=== PATIENT | male | born 1950 | race Caucasian/White ===

== ENCOUNTER 2021-07-23 16:42 | Inpatient (IN) | payer MEDICARE, OTHER ==
[~2021-07-23 16:42] MED LIST: Iopamidol 370 76% 100 ML VIAL ONE
[2021-07-23 17:27] LABS: #Lymphocytes 0.6 thou/uL (1.20-3.40); #Monocytes 0.3 thou/uL (0.11-0.59); #Neutrophils 2.4 thou/uL (1.40-6.50); %Basophils 0.4 % (0.0-1.0); %Eosinophils 0.2 % (0.0-10.0); %Lymphocytes 18.1 % (21.0-51.0); %Monocytes 8.3 % (0.0-10.0); Hemoglobin 15.3 g/dL (14.0-18.0); Mean Corpuscular HGB CONC 32.5 g/dL (32.0-36.0); Mean Corpuscular Hemoglobin 32.4 pg (27.0-31.0); Mean Corpuscular Volume 99.9 fL (78.0-98.0); Mean Platelet Volume 7.8 fL (7.4-10.4); Platelet Count 88 thou/uL (130-400); RBC Distribution Width 13.1 % (11.5-14.5); Red Blood Cell (RBC) Count 4.72 mill/uL (4.70-6.10); White Blood Cell (WBC) Count 3.3 thou/uL (4.8-10.8)
[2021-07-23] MEDS ORDERED: Albuterol 200 PUFF (6.7GM INHALER) ONE (17:31)
[2021-07-23 17:42] LABS: Platelet Morphology Comment Appears Decreased; RBC Morphology Normal
[2021-07-23 17:44] LABS: Anion Gap 12 mmol/L (10-20); BUN (Urea Nitrogen) 16 mg/dL (8.4-25.7); Calc. Creatinine Clearance 0 mL/min (70-130); Calcium 8.2 mg/dL (7.8-10.44); Carbon Dioxide 26 mmol/L (23-31); Chloride 102 mmol/L (98-107); Glucose 100 mg/dL (83-110); Potassium 4.7 mmol/L (3.5-5.1); Sodium 135 mmol/L (136-145)
[2021-07-23] MEDS ORDERED: cefTRIAXone\\ROCEPHIN 1 GM VIAL ONE (18:04)
[2021-07-23] MEDS ORDERED: Dexamethasone 10 MG/ML VIAL ONE (18:04)
[2021-07-23 18:15] LABS: CKMB 2.4 ng/mL (0-6.6)
[2021-07-23] MEDS ORDERED: Azithromycin 250 MG TAB ONE (18:16)
[2021-07-23] MEDS ORDERED: Acetaminophen 650 MG Suppository PR PRN (19:57)
[2021-07-23] MEDS ORDERED: Ondansetron PF 4 MG/2 ML Vial IVP PRN (19:57)
[2021-07-23] MEDS ORDERED: Ondansetron ODT 4 MG TAB PO PRN (19:57)
[2021-07-23 20:50] LABS: Troponin I 0.067 ng/mL (< 0.028)
[2021-07-23] MEDS ORDERED: Furosemide 40 MG/4 ML VIAL SLOW IVP SCH (21:00)
[2021-07-23] MEDS ORDERED: Enoxaparin Sodium 40 MG/0.4 ML SYRINGE SC SCH (21:00)
[2021-07-23 21:11] VITALS: BMI 41.4
[2021-07-23] MEDS: Albuterol 200 PUFF (6.7GM INHALER) INH SCH (22:21)
[2021-07-23] MEDS ORDERED: traZODone HCl 50 MG TAB PO PRN (22:42)
[2021-07-23] MEDS: Acetaminophen 325 MG TAB PO PRN (23:05)
[2021-07-23 23:44] LABS: Troponin I 0.062 ng/mL (< 0.028)
[2021-07-24] MEDS: Albuterol 200 PUFF (6.7GM INHALER) INH SCH ×6 (02:50→22:36)
[2021-07-24 06:51] LABS: Anion Gap 12 mmol/L (10-20); BUN (Urea Nitrogen) 22 mg/dL (8.4-25.7); Calc. Creatinine Clearance 126 mL/min (70-130); Calcium 8.1 mg/dL (7.8-10.44); Carbon Dioxide 23 mmol/L (23-31); Chloride 106 mmol/L (98-107); Glucose 145 mg/dL (83-110); Potassium 4.7 mmol/L (3.5-5.1); Sodium 136 mmol/L (136-145)
[2021-07-24 06:54] LABS: Mean Corpuscular HGB CONC 32.8 g/dL (32.0-36.0); Mean Corpuscular Hemoglobin 33.1 pg (27.0-31.0); Mean Platelet Volume 8.2 fL (7.4-10.4); Platelet Count 67 thou/uL (130-400); RBC Distribution Width 12.9 % (11.5-14.5); Red Blood Cell (RBC) Count 4.82 mill/uL (4.70-6.10); White Blood Cell (WBC) Count 1.4 thou/uL (4.8-10.8)
[2021-07-24 06:55] LABS: Anisocytosis SLIGHT = 6-15 cells (100X) (0-5/hpf); Band 4 % (5-11); Lymphocytes 26 % (21-51); MDiff Complete? YES; Macrocytosis SLIGHT = 6-15 cells (100X) (0-5/hpf); Monocytes 8 % (0-10); Neutrophil 62 % (42-75); Platelet Morphology Comment Appears Decreased
[2021-07-24] MEDS: Ascorbic Acid 500 mg Chewable Tablet PO SCH (07:57)
[2021-07-24] MEDS: Pantoprazole 40 MG VIAL IVP SCH (07:58)
[2021-07-24] MEDS: Zinc Sulfate 220 MG CAP PO SCH (07:58)
[2021-07-24] MEDS: Cholecalciferol (Vitamin D3) 400 UNITS TAB PO SCH (07:58)
[2021-07-24] MEDS: Furosemide 40 MG/4 ML VIAL SLOW IVP SCH (07:58)
[2021-07-24] MEDS ORDERED: ALPRAZolam 0.5 MG TAB PO SCH (08:21)
[2021-07-24] MEDS ORDERED: Dexamethasone 10 MG/ML VIAL SLOW IVP SCH (09:00)
[2021-07-24 15:07] LABS: ALT (SGPT) 44 U/L (8-55); AST (SGOT) 108 U/L (5-34); Albumin 2.8 g/dL (3.4-4.8); Alkaline Phosphatase 93 U/L (40-110); Bilirubin, Direct 0.5 mg/dL (0.1-0.3); Bilirubin, Total 0.8 mg/dL (0.2-1.2); Protein, Total 6.5 g/dL (5.8-8.1)
[2021-07-24] MEDS: Acetaminophen 325 MG TAB PO PRN (20:47)
[2021-07-24] MEDS: Morphine 4 MG/ML VIAL SLOW IVP PRN (22:32)
[2021-07-24] MEDS: Benzonatate 100 MG CAP PO PRN (22:34)
[2021-07-24] MEDS: guaiFENesin ER 600 MG TAB PO SCH (22:34)
[2021-07-25] MEDS: Morphine 4 MG/ML VIAL SLOW IVP PRN ×2 (02:46→21:50)
[2021-07-25] MEDS: Benzonatate 100 MG CAP PO PRN ×2 (02:47→21:51)
[2021-07-25] MEDS: Albuterol 200 PUFF (6.7GM INHALER) INH SCH ×6 (02:49→21:54)
[2021-07-25 06:06] LABS: #Lymphocytes 0.4 thou/uL (1.20-3.40); #Monocytes 0.4 thou/uL (0.11-0.59); #Neutrophils 6.9 thou/uL (1.40-6.50); %Eosinophils 0.1 % (0.0-10.0); %Lymphocytes 4.7 % (21.0-51.0); %Monocytes 4.8 % (0.0-10.0); %Neutrophils 90.4 % (42.0-75.0); Mean Corpuscular HGB CONC 31.9 g/dL (32.0-36.0); Mean Platelet Volume 8.5 fL (7.4-10.4); Platelet Count 91 thou/uL (130-400); Red Blood Cell (RBC) Count 4.99 mill/uL (4.70-6.10); White Blood Cell (WBC) Count 7.6 thou/uL (4.8-10.8)
[2021-07-25 06:32] LABS: ALT (SGPT) 57 U/L (8-55); AST (SGOT) 127 U/L (5-34); Albumin 2.6 g/dL (3.4-4.8); Alkaline Phosphatase 86 U/L (40-110); Anion Gap 13 mmol/L (10-20); BUN (Urea Nitrogen) 27 mg/dL (8.4-25.7); Bilirubin, Total 0.8 mg/dL (0.2-1.2); CRP (Inflammatory) 0.82 mg/dL (= or < 0.5); Calc. Creatinine Clearance 131 mL/min (70-130); Calcium 8.4 mg/dL (7.8-10.44); Carbon Dioxide 23 mmol/L (23-31); Chloride 107 mmol/L (98-107); Globulin 3.4 g/dL (2.4-3.5); Glucose 157 mg/dL (83-110); Potassium 4.5 mmol/L (3.5-5.1); Sodium 138 mmol/L (136-145)
[2021-07-25] MEDS ORDERED: REMDESIVIR 200 MG in Sodium Chloride 0.9% 250 ML 210 ML IV SCH (09:00)
[2021-07-25] MEDS: Ascorbic Acid 500 mg Chewable Tablet PO SCH (09:58)
[2021-07-25] MEDS: Multivitamin W/ Minerals 1 TAB PO SCH (09:59)
[2021-07-25] MEDS: Dexamethasone 4 mg/ml Vial SLOW IVP SCH (09:59)
[2021-07-25] MEDS: Furosemide 40 MG/4 ML VIAL SLOW IVP SCH (09:59)
[2021-07-25] MEDS: Folic Acid 1 MG TAB PO SCH (09:59)
[2021-07-25] MEDS: Cholecalciferol (Vitamin D3) 400 UNITS TAB PO SCH (09:59)
[2021-07-25] MEDS: guaiFENesin ER 600 MG TAB PO SCH ×2 (09:59→21:51)
[2021-07-25] MEDS: Thiamine 100 MG TAB PO SCH (10:00)
[2021-07-25] MEDS: Zinc Sulfate 220 MG CAP PO SCH (10:00)
[2021-07-25] MEDS: Pantoprazole 40 MG VIAL IVP SCH (10:00)
[2021-07-25 15:08] LABS: HBSAg Index 0.27 S/CO (0-0.99); HIV (1/2) Antibody/Antigen Non-Reactive (NonReactive); HIV 1/2 INDEX 0.14 S/CO (<1.00); Hep B Surf Ag Non-Reactive S/CO (NonReactive); Thyroid Stimulating Hormone 0.2587 uIU/mL (0.35-4.94)
[2021-07-25 15:12] LABS: HBSAB Concentration 41.47 mIU/mL; Hep B Surf AB Reactive (NonReactive); Hep C IgG Ab Reflex HepC Qnt (NonReactive); Hep C Index 13.89 S/CO (0-0.79)
[2021-07-25 15:44] LABS: Hep B Core Total Ab Reactive (NonReactive); Hep B Core Total Index 9.83 S/CO (0-0.79)
[2021-07-25] MEDS ORDERED: Melatonin 3 MG TAB PO SCH (21:29)
[2021-07-26] MEDS: Albuterol 200 PUFF (6.7GM INHALER) INH SCH ×6 (03:49→23:28)
[2021-07-26 05:25] LABS: #Lymphocytes 0.4 thou/uL (1.20-3.40); #Monocytes 0.5 thou/uL (0.11-0.59); #Neutrophils 8.4 thou/uL (1.40-6.50); %Eosinophils 0.1 % (0.0-10.0); %Lymphocytes 4.5 % (21.0-51.0); %Monocytes 5.2 % (0.0-10.0); %Neutrophils 90.3 % (42.0-75.0); Hemoglobin 15.8 g/dL (14.0-18.0); Mean Corpuscular Hemoglobin 31.3 pg (27.0-31.0); Mean Platelet Volume 8.8 fL (7.4-10.4); Platelet Count 97 thou/uL (130-400); RBC Distribution Width 13.1 % (11.5-14.5); Red Blood Cell (RBC) Count 5.06 mill/uL (4.70-6.10); White Blood Cell (WBC) Count 9.3 thou/uL (4.8-10.8)
[2021-07-26] MEDS: Morphine 4 MG/ML VIAL SLOW IVP PRN ×2 (05:26→20:01)
[2021-07-26 05:29] LABS: INR-International Normal Ratio 1.1; Prothrombin Time 14.7 sec (12.0-14.7)
[2021-07-26 05:47] LABS: ALT (SGPT) 68 U/L (8-55); AST (SGOT) 135 U/L (5-34); Albumin 2.5 g/dL (3.4-4.8); Alkaline Phosphatase 94 U/L (40-110); Anion Gap 13 mmol/L (10-20); BUN (Urea Nitrogen) 30 mg/dL (8.4-25.7); Bilirubin, Total 0.9 mg/dL (0.2-1.2); Calc. Creatinine Clearance 145 mL/min (70-130); Calcium 8.4 mg/dL (7.8-10.44); Carbon Dioxide 24 mmol/L (23-31); Cardiac Risk 3.8 (Less than 4.5); Chloride 107 mmol/L (98-107); Cholesterol 109 mg/dl (< 200 Desired); Globulin 3.7 g/dL (2.4-3.5); Glucose 147 mg/dL (83-110); HDL Cholesterol 29 mg/dL (>60 Neg Risk); LDL Cholesterol, Calculated 67 mg/dL; Potassium 4.8 mmol/L (3.5-5.1); Protein, Total 6.2 g/dL (5.8-8.1); Sodium 139 mmol/L (136-145); Triglycerides 63 mg/dL (Less than 150)
[2021-07-26] MEDS ORDERED: REMDESIVIR 100 MG in Sodium Chloride 0.9% 250 ML 230 ML IV SCH (09:00)
[2021-07-26] MEDS: Pantoprazole 40 MG VIAL IVP SCH (09:36)
[2021-07-26] MEDS: guaiFENesin ER 600 MG TAB PO SCH ×2 (09:38→20:03)
[2021-07-26] MEDS: Folic Acid 1 MG TAB PO SCH (09:39)
[2021-07-26] MEDS: Thiamine 100 MG TAB PO SCH (09:39)
[2021-07-26] MEDS: Multivitamin W/ Minerals 1 TAB PO SCH (09:39)
[2021-07-26] MEDS: Ascorbic Acid 500 mg Chewable Tablet PO SCH (09:39)
[2021-07-26] MEDS: Zinc Sulfate 220 MG CAP PO SCH (09:39)
[2021-07-26] MEDS: Dexamethasone 4 mg/ml Vial SLOW IVP SCH (09:40)
[2021-07-26] MEDS: Cholecalciferol (Vitamin D3) 400 UNITS TAB PO SCH (09:40)
[2021-07-26] MEDS: Furosemide 40 MG/4 ML VIAL SLOW IVP SCH (09:53)
[2021-07-26] MEDS: Acetaminophen 325 MG TAB PO PRN (16:59)
[2021-07-26] MEDS: Benzonatate 100 MG CAP PO PRN (16:59)
[2021-07-27] MEDS: Albuterol 200 PUFF (6.7GM INHALER) INH SCH ×6 (03:54→21:34)
[2021-07-27] MEDS: Ascorbic Acid 500 mg Chewable Tablet PO SCH (09:37)
[2021-07-27] MEDS: Dexamethasone 4 mg/ml Vial SLOW IVP SCH (09:38)
[2021-07-27] MEDS: Cholecalciferol (Vitamin D3) 400 UNITS TAB PO SCH (09:38)
[2021-07-27] MEDS: Folic Acid 1 MG TAB PO SCH (09:38)
[2021-07-27] MEDS: Furosemide 40 MG/4 ML VIAL SLOW IVP SCH (09:38)
[2021-07-27] MEDS: Pantoprazole 40 MG VIAL IVP SCH (09:39)
[2021-07-27] MEDS: Multivitamin W/ Minerals 1 TAB PO SCH (09:39)
[2021-07-27] MEDS: guaiFENesin ER 600 MG TAB PO SCH ×2 (09:39→19:49)
[2021-07-27] MEDS: Zinc Sulfate 220 MG CAP PO SCH (09:40)
[2021-07-27] MEDS: Thiamine 100 MG TAB PO SCH (09:40)
[2021-07-27] MEDS: Benzonatate 100 MG CAP PO PRN (19:49)
[2021-07-27] MEDS: traMADol HCl 50 MG TAB PO PRN (19:49)
[2021-07-27] MEDS: Morphine 4 MG/ML VIAL SLOW IVP PRN (21:26)
[2021-07-28 02:03] LABS: Bacteria/HPF None Seen HPF (None Seen); Bilirubin Negative (Negative); Blood, Urine Negative (Negative); Clarity Clear (Clear); Glucose, Urine (Dipstick) Normal (Negative); Ketone, Urine Negative (Negative); Leukocyte Negative Leu/uL (Negative); Nitrite Negative (Negative); Protein, Urine (Dipstick) 20 mg/dL (Neg-Trace); RBC/HPF 0-3 HPF (0-3); Specific Gravity, Urine 1.032 (1.002-1.036); Squamous Epithelial None Seen HPF (0-3); WBC/HPF 0-3 HPF (0-3); pH, Urine 6.5 (5.0-9.0)
[2021-07-28 02:08] LABS: Urine Culture Reflex No No
[2021-07-28 02:09] LABS: Actual Bicarbonate (HCO3a) 31.4 mEq/L (22-28); Base Excess (BEa) 5.6 mEq/L (-2.0 to +3.0); CO2 Tension 49.6 mmHg (35.0-45.0); Calcium, Ionized (arterial) 1.18 mmol/L (1.12-1.30); Carboxyhemoglobin (COHb) 0.5 gm% (0.0-3.0); O2 Tension (PaO2), arterial 70.8 mmHg (> 70.0); Potassium - ABG Lab 4.52 mmol/L (3.70-5.30); pH, Arterial 7.42 (7.35-7.45)
[2021-07-28 02:15] LABS: Puncture Site RRA
[2021-07-28 02:20] LABS: #Lymphocytes 0.7 thou/uL (1.20-3.40); #Monocytes 0.8 thou/uL (0.11-0.59); #Neutrophils 10.1 thou/uL (1.40-6.50); %Basophils 0.1 % (0.0-1.0); %Eosinophils 0.1 % (0.0-10.0); %Lymphocytes 5.8 % (21.0-51.0); %Monocytes 7.1 % (0.0-10.0); %Neutrophils 86.9 % (42.0-75.0); Hemoglobin 17.5 g/dL (14.0-18.0); Mean Corpuscular HGB CONC 32.2 g/dL (32.0-36.0); Mean Corpuscular Hemoglobin 32.2 pg (27.0-31.0); Mean Platelet Volume 8.7 fL (7.4-10.4); Platelet Count 118 thou/uL (130-400); RBC Distribution Width 13.1 % (11.5-14.5); Red Blood Cell (RBC) Count 5.44 mill/uL (4.70-6.10); White Blood Cell (WBC) Count 11.6 thou/uL (4.8-10.8)
[2021-07-28 02:35] LABS: ALT (SGPT) 87 U/L (8-55); AST (SGOT) 125 U/L (5-34); Albumin 2.8 g/dL (3.4-4.8); Alkaline Phosphatase 103 U/L (40-110); Anion Gap 10 mmol/L (10-20); BUN (Urea Nitrogen) 35 mg/dL (8.4-25.7); Bilirubin, Total 1.6 mg/dL (0.2-1.2); Calc. Creatinine Clearance 145 mL/min (70-130); Calcium 8.7 mg/dL (7.8-10.44); Carbon Dioxide 29 mmol/L (23-31); Chloride 105 mmol/L (98-107); Globulin 3.6 g/dL (2.4-3.5); Glucose 140 mg/dL (83-110); Potassium 4.6 mmol/L (3.5-5.1); Protein, Total 6.4 g/dL (5.8-8.1); Sodium 139 mmol/L (136-145)
[2021-07-28] MEDS: Albuterol 200 PUFF (6.7GM INHALER) INH SCH ×6 (03:24→21:52)
[2021-07-28 05:07] LABS: #Lymphocytes 0.6 thou/uL (1.20-3.40); #Monocytes 0.8 thou/uL (0.11-0.59); #Neutrophils 9.5 thou/uL (1.40-6.50); %Basophils 0.1 % (0.0-1.0); %Eosinophils 0.1 % (0.0-10.0); %Lymphocytes 5.4 % (21.0-51.0); %Neutrophils 87.4 % (42.0-75.0); Hemoglobin 17.2 g/dL (14.0-18.0); Mean Corpuscular HGB CONC 32.3 g/dL (32.0-36.0); Mean Corpuscular Hemoglobin 32.5 pg (27.0-31.0); Mean Platelet Volume 8.5 fL (7.4-10.4); Platelet Count 125 thou/uL (130-400); RBC Distribution Width 13.1 % (11.5-14.5); Red Blood Cell (RBC) Count 5.29 mill/uL (4.70-6.10); White Blood Cell (WBC) Count 10.8 thou/uL (4.8-10.8)
[2021-07-28 05:26] LABS: Anion Gap 10 mmol/L (10-20); BUN (Urea Nitrogen) 35 mg/dL (8.4-25.7); Calc. Creatinine Clearance 136 mL/min (70-130); Calcium 8.8 mg/dL (7.8-10.44); Carbon Dioxide 33 mmol/L (23-31); Chloride 104 mmol/L (98-107); Glucose 131 mg/dL (83-110); Potassium 4.9 mmol/L (3.5-5.1); Sodium 142 mmol/L (136-145)
[2021-07-28] MEDS: Zinc Sulfate 220 MG CAP PO SCH (08:25)
[2021-07-28] MEDS: Folic Acid 1 MG TAB PO SCH (08:25)
[2021-07-28] MEDS: Ascorbic Acid 500 mg Chewable Tablet PO SCH (08:25)
[2021-07-28] MEDS: guaiFENesin ER 600 MG TAB PO SCH ×3 (08:26→21:53)
[2021-07-28] MEDS: Multivitamin W/ Minerals 1 TAB PO SCH (08:26)
[2021-07-28] MEDS: Thiamine 100 MG TAB PO SCH (08:26)
[2021-07-28] MEDS: Cholecalciferol (Vitamin D3) 400 UNITS TAB PO SCH (08:26)
[2021-07-28] MEDS: Furosemide 40 MG/4 ML VIAL SLOW IVP SCH (08:32)
[2021-07-28] MEDS: Pantoprazole 40 MG VIAL IVP SCH (08:32)
[2021-07-28] MEDS: Dexamethasone 4 mg/ml Vial SLOW IVP SCH (08:32)
[2021-07-28 10:17] LABS: Hep C PCR-Quant HCV Not Detected IU/mL (.)
[2021-07-29] MEDS: Albuterol 200 PUFF (6.7GM INHALER) INH SCH ×4 (03:53→15:24)
[2021-07-29] MEDS: Pantoprazole 40 MG VIAL IVP SCH ×2 (08:30→10:30)
[2021-07-29] MEDS: Furosemide 40 MG/4 ML VIAL SLOW IVP SCH ×2 (08:30→10:30)
[2021-07-29] MEDS: Zinc Sulfate 220 MG CAP PO SCH ×2 (08:31→10:30)
[2021-07-29] MEDS: Dexamethasone 4 mg/ml Vial SLOW IVP SCH ×2 (08:31→10:30)
[2021-07-29] MEDS: Ascorbic Acid 500 mg Chewable Tablet PO SCH ×2 (08:31→10:30)
[2021-07-29] MEDS: guaiFENesin ER 600 MG TAB PO SCH ×3 (08:31→20:59)
[2021-07-29] MEDS: Thiamine 100 MG TAB PO SCH ×2 (08:31→10:30)
[2021-07-29] MEDS: Folic Acid 1 MG TAB PO SCH ×2 (08:32→10:30)
[2021-07-29] MEDS: Cholecalciferol (Vitamin D3) 400 UNITS TAB PO SCH ×2 (08:32→10:30)
[2021-07-29 11:50] LABS: Actual Bicarbonate (HCO3a) 26.5 mEq/L (22-28); Base Excess (BEa) 5.6 mEq/L (-2.0 to +3.0); CO2 Tension 29.2 mmHg (35.0-45.0); Calcium, Ionized (arterial) 1.12 mmol/L (1.12-1.30); Carboxyhemoglobin (COHb) 0.3 gm% (0.0-3.0); Hemoglobin (Hb) 18.3 g/dL (14.0-18.0); O2 Tension (PaO2), arterial 84.8 mmHg (> 70.0); Potassium - ABG Lab 4.05 mmol/L (3.70-5.30)
[2021-07-29 11:53] LABS: Puncture Site RRA; pH, Arterial 7.58 (7.35-7.45)
[2021-07-29 14:00] LABS: #Lymphocytes 0.8 thou/uL (1.20-3.40); #Monocytes 1.5 thou/uL (0.11-0.59); #Neutrophils 10.2 thou/uL (1.40-6.50); %Basophils 0.2 % (0.0-1.0); %Lymphocytes 6.7 % (21.0-51.0); %Monocytes 11.8 % (0.0-10.0); %Neutrophils 81.3 % (42.0-75.0); Hemoglobin 18.4 g/dL (14.0-18.0); Mean Corpuscular HGB CONC 32.7 g/dL (32.0-36.0); Mean Corpuscular Hemoglobin 32.4 pg (27.0-31.0); Mean Corpuscular Volume 99.4 fL (78.0-98.0); Mean Platelet Volume 8.4 fL (7.4-10.4); Platelet Count 131 thou/uL (130-400); RBC Distribution Width 13.1 % (11.5-14.5); Red Blood Cell (RBC) Count 5.68 mill/uL (4.70-6.10); White Blood Cell (WBC) Count 12.6 thou/uL (4.8-10.8)
[2021-07-29 14:13] LABS: Anion Gap 15 mmol/L (10-20); BUN (Urea Nitrogen) 42 mg/dL (8.4-25.7); Calc. Creatinine Clearance 129 mL/min (70-130); Calcium 9.1 mg/dL (7.8-10.44); Carbon Dioxide 25 mmol/L (23-31); Chloride 107 mmol/L (98-107); Glucose 110 mg/dL (83-110); Potassium 4.3 mmol/L (3.5-5.1); Sodium 143 mmol/L (136-145)
[2021-07-30] MEDS: Albuterol 200 PUFF (6.7GM INHALER) INH SCH ×6 (03:55→21:45)
[2021-07-30] MEDS: Ascorbic Acid 500 mg Chewable Tablet PO SCH (10:47)
[2021-07-30] MEDS: Folic Acid 1 MG TAB PO SCH (10:48)
[2021-07-30] MEDS: Cholecalciferol (Vitamin D3) 400 UNITS TAB PO SCH (10:48)
[2021-07-30] MEDS: guaiFENesin ER 600 MG TAB PO SCH ×2 (10:48→21:45)
[2021-07-30] MEDS: Furosemide 40 MG/4 ML VIAL SLOW IVP SCH (10:48)
[2021-07-30] MEDS: Pantoprazole 40 MG VIAL IVP SCH (10:49)
[2021-07-30] MEDS: Multivitamin W/ Minerals 1 TAB PO SCH (10:49)
[2021-07-30] MEDS: Zinc Sulfate 220 MG CAP PO SCH (10:50)
[2021-07-30] MEDS: Thiamine 100 MG TAB PO SCH (10:50)
[2021-07-30 14:01] LABS: #Basophils 0.1 thou/uL (0.0-0.2); #Lymphocytes 0.6 thou/uL (1.20-3.40); #Monocytes 0.8 thou/uL (0.11-0.59); %Basophils 0.8 % (0.0-1.0); %Eosinophils 0.1 % (0.0-10.0); %Lymphocytes 9.6 % (21.0-51.0); %Monocytes 11.7 % (0.0-10.0); %Neutrophils 77.8 % (42.0-75.0); Hemoglobin 17.7 g/dL (14.0-18.0); Mean Corpuscular HGB CONC 33.5 g/dL (32.0-36.0); Mean Corpuscular Hemoglobin 33.5 pg (27.0-31.0); Mean Corpuscular Volume 99.9 fL (78.0-98.0); Mean Platelet Volume 8.8 fL (7.4-10.4); Platelet Count 119 thou/uL (130-400); Red Blood Cell (RBC) Count 5.28 mill/uL (4.70-6.10); White Blood Cell (WBC) Count 6.4 thou/uL (4.8-10.8)
[2021-07-30 14:15] LABS: Anion Gap 14 mmol/L (10-20); BUN (Urea Nitrogen) 48 mg/dL (8.4-25.7); Calc. Creatinine Clearance 149 mL/min (70-130); Calcium 8.5 mg/dL (7.8-10.44); Carbon Dioxide 26 mmol/L (23-31); Chloride 108 mmol/L (98-107); Glucose 147 mg/dL (83-110); Potassium 4.6 mmol/L (3.5-5.1); Sodium 143 mmol/L (136-145)
[2021-07-31] MEDS: Albuterol 200 PUFF (6.7GM INHALER) INH SCH ×6 (01:35→22:56)
[2021-07-31 04:29] LABS: ALT (SGPT) 64 U/L (8-55); AST (SGOT) 65 U/L (5-34); Albumin 2.5 g/dL (3.4-4.8); Alkaline Phosphatase 93 U/L (40-110); Anion Gap 10 mmol/L (10-20); BUN (Urea Nitrogen) 46 mg/dL (8.4-25.7); Bilirubin, Total 2.8 mg/dL (0.2-1.2); Calc. Creatinine Clearance 146 mL/min (70-130); Calcium 8.5 mg/dL (7.8-10.44); Carbon Dioxide 28 mmol/L (23-31); Chloride 108 mmol/L (98-107); Globulin 3.3 g/dL (2.4-3.5); Glucose 117 mg/dL (83-110); Iron 165 ug/dL (65-175); Iron Binding Capacity, Total 155 mcg/dL (261-462); Protein, Total 5.8 g/dL (5.8-8.1); Sodium 142 mmol/L (136-145)
[2021-07-31 06:11] LABS: Hemoglobin 16.9 g/dL (14.0-18.0); Mean Corpuscular HGB CONC 32.2 g/dL (32.0-36.0); Mean Corpuscular Hemoglobin 32.3 pg (27.0-31.0); Mean Platelet Volume 8.2 fL (7.4-10.4); Platelet Count 125 thou/uL (130-400); RBC Distribution Width 13.1 % (11.5-14.5); Red Blood Cell (RBC) Count 5.24 mill/uL (4.70-6.10); White Blood Cell (WBC) Count 7.4 thou/uL (4.8-10.8)
[2021-07-31 06:26] LABS: #Eosinphils 0.1 thou/uL (0.0-0.7); #Lymphocytes 0.7 thou/uL (1.20-3.40); #Monocytes 0.7 thou/uL (0.11-0.59); #Neutrophils 5.9 thou/uL (1.40-6.50); %Basophils 0.1 % (0.0-1.0); %Eosinophils 0.7 % (0.0-10.0); %Lymphocytes 9.1 % (21.0-51.0); %Monocytes 9.9 % (0.0-10.0); %Neutrophils 80.2 % (42.0-75.0)
[2021-07-31] MEDS: Cholecalciferol (Vitamin D3) 400 UNITS TAB PO SCH (08:52)
[2021-07-31] MEDS: guaiFENesin ER 600 MG TAB PO SCH ×2 (08:52→21:02)
[2021-07-31] MEDS: Folic Acid 1 MG TAB PO SCH (08:52)
[2021-07-31] MEDS: Ascorbic Acid 500 mg Chewable Tablet PO SCH (08:52)
[2021-07-31] MEDS: Multivitamin W/ Minerals 1 TAB PO SCH (08:53)
[2021-07-31] MEDS: Zinc Sulfate 220 MG CAP PO SCH (08:53)
[2021-07-31] MEDS: Pantoprazole 40 MG VIAL IVP SCH (08:53)
[2021-07-31] MEDS: Thiamine 100 MG TAB PO SCH (08:53)
[2021-07-31] MEDS: traMADol HCl 50 MG TAB PO PRN (21:03)
[2021-08-01] MEDS: Albuterol 200 PUFF (6.7GM INHALER) INH SCH ×6 (03:11→22:30)
[2021-08-01 04:06] LABS: #Basophils 0.1 thou/uL (0.0-0.2); #Eosinphils 0.2 thou/uL (0.0-0.7); #Lymphocytes 1.2 thou/uL (1.20-3.40); #Monocytes 1.2 thou/uL (0.11-0.59); #Neutrophils 7.3 thou/uL (1.40-6.50); %Basophils 0.6 % (0.0-1.0); %Eosinophils 2.4 % (0.0-10.0); %Lymphocytes 11.7 % (21.0-51.0); %Monocytes 11.6 % (0.0-10.0); %Neutrophils 73.9 % (42.0-75.0); Hemoglobin 16.5 g/dL (14.0-18.0); Mean Corpuscular HGB CONC 32.7 g/dL (32.0-36.0); Mean Corpuscular Hemoglobin 32.7 pg (27.0-31.0); Mean Platelet Volume 8.7 fL (7.4-10.4); Platelet Count 122 thou/uL (130-400); RBC Distribution Width 13.2 % (11.5-14.5); Red Blood Cell (RBC) Count 5.04 mill/uL (4.70-6.10); White Blood Cell (WBC) Count 9.9 thou/uL (4.8-10.8)
[2021-08-01] MEDS: Thiamine 100 MG TAB PO SCH (07:33)
[2021-08-01] MEDS: Ascorbic Acid 500 mg Chewable Tablet PO SCH (07:33)
[2021-08-01] MEDS: Folic Acid 1 MG TAB PO SCH (07:33)
[2021-08-01] MEDS: Zinc Sulfate 220 MG CAP PO SCH (07:33)
[2021-08-01] MEDS: guaiFENesin ER 600 MG TAB PO SCH ×2 (07:34→20:41)
[2021-08-01] MEDS: Multivitamin W/ Minerals 1 TAB PO SCH (07:34)
[2021-08-01] MEDS: Cholecalciferol (Vitamin D3) 400 UNITS TAB PO SCH (07:34)
[2021-08-01] MEDS: Benzonatate 100 MG CAP PO PRN (20:41)
[2021-08-02] MEDS: Albuterol 200 PUFF (6.7GM INHALER) INH SCH ×3 (03:11→11:10)
[2021-08-02] MEDS: Ascorbic Acid 500 mg Chewable Tablet PO SCH (08:53)
[2021-08-02] MEDS: guaiFENesin ER 600 MG TAB PO SCH (08:53)
[2021-08-02] MEDS: Thiamine 100 MG TAB PO SCH (08:53)
[2021-08-02] MEDS: Multivitamin W/ Minerals 1 TAB PO SCH (08:53)
[2021-08-02] MEDS: Folic Acid 1 MG TAB PO SCH (08:54)
[2021-08-02] MEDS: Zinc Sulfate 220 MG CAP PO SCH (08:54)
[2021-08-02] MEDS: Cholecalciferol (Vitamin D3) 400 UNITS TAB PO SCH (08:54)
[2021-08-02 12:28] VITALS: BP 153/98; TEMP 97.9
[2021-08-02 12:37] LABS: Smooth Muscle Total ABS 24 Units (0-19)
[2021-08-03 14:15] LABS: A1 Antitrypsin Phenotype Inter MS (.); Alpha-1-Antitrypsin 80 mg/dL (101-187)
== END 2021-08-02 13:47 | disposition home or self-care (01) | DRG 177 ==
LOC: ERS 16:42 → 2SW 19:23 → IMCU/EMU 07-29 18:06 → T4-B 08-01 15:32
PROVIDERS: ADMIT Student in an Organized Health Care Education/Training Program; ATTEND Internal Medicine
PROC: 8E0ZXY6 Isolation (ICD-10-PCS; 2021-07-23)
PROC: XW033E5 Introduction of Remdesivir Anti-infective into Peripheral Vein, Percutaneous Approach, New Technology Group 5 (ICD-10-PCS; principal; 2021-07-25)
PROC: 0DH67UZ Insertion of Feeding Device into Stomach, Via Natural or Artificial Opening (ICD-10-PCS; 2021-07-29)
DX: U07.1 COVID-19 (principal); J12.82 Pneumonia due to coronavirus disease 2019; J96.01 Acute respiratory failure with hypoxia; I48.92 Unspecified atrial flutter; I50.22 Chronic systolic (congestive) heart failure; I42.8 Other cardiomyopathies; Z68.41 Body mass index [BMI] 40.0-44.9, adult; F32.A Depression, unspecified; R77.8 Other specified abnormalities of plasma proteins; K76.89 Other specified diseases of liver; E66.01 Morbid (severe) obesity due to excess calories; K70.30 Alcoholic cirrhosis of liver without ascites; F10.20 Alcohol dependence, uncomplicated; I48.91 Unspecified atrial fibrillation; I35.0 Nonrheumatic aortic (valve) stenosis; R59.0 Localized enlarged lymph nodes; D69.59 Other secondary thrombocytopenia; K72.90 Hepatic failure, unspecified without coma; Z87.891 Personal history of nicotine dependence; Z78.1 Physical restraint status; Z98.890 Other specified postprocedural states; Z79.899 Other long term (current) drug therapy
CPT/HCPCS: 36415; 36416; 36600; 70450; 71045; 71275; 74018; 76705; 80048; 80053; 80061; 80076; 81001; 82103; 82104; 82105; 82140; 82550; 82553; 82728; 82805; 83036; 83516; 83540; 83550; 83605; 83880; 84443; 84484; 85025; 85379; 85610; 86140; 86704; 86706; 86707; 86803; 87040; 87340; 87350; 87389; 87521; 87522; 93005; 93306; 96365; 96375; C9113; J0248; J0696; J1100; J1940; J2270; J3490; J7050; Q9967

== ENCOUNTER 2024-05-08 06:30 | Inpatient (IN) | payer MEDICARE ==
[2024-05-08] MEDS ORDERED: Albuterol 2.5 MG (0.5 mL) NEB ONE (06:45)
[2024-05-08] MEDS ORDERED: Ipratropium/Albuterol 3 ML NEB ONE (06:45)
[2024-05-08] MEDS ORDERED: LevoFLOXacin 750 mg/D5W 150 ml Premix Bag ONE (06:50)
[2024-05-08] MEDS ORDERED: Magnesium 2 GM/50 ML BAG (IN WATER) ONE (06:50)
[2024-05-08 07:39] LABS: ALT (SGPT) 25 U/L (8-55); AST (SGOT) 43 U/L (5-34); Alkaline Phosphatase 96 U/L (40-110); Anion Gap 12 mmol/L (10-20); BUN (Urea Nitrogen) 15 mg/dL (8.4-25.7); Bilirubin, Total 2.2 mg/dL (0.2-1.2); Calc. Creatinine Clearance 0 mL/min (70-130); Calcium 8.9 mg/dL (7.8-10.44); Carbon Dioxide 28 mmol/L (23-31); Chloride 105 mmol/L (98-107); Estimated GFR 94; Globulin 3.1 g/dL (2.4-3.5); Glucose 99 mg/dL (83-110); Potassium 4.3 mmol/L (3.5-5.1); Protein, Total 6.1 g/dL (5.8-8.1); Sodium 141 mmol/L (136-145)
[2024-05-08 07:43] LABS: Troponin I 0.052 ng/mL (< 0.028)
[2024-05-08 07:45] LABS: Bacteria/HPF None Seen HPF (None Seen); Bilirubin Negative (Negative); Blood, Urine Trace (Negative); CAUTI Indications for Culture Dysuria,urgency,freq; Clarity Clear (Clear); Glucose, Urine (Dipstick) Normal (Negative); Ketone, Urine Negative (Negative); Leukocyte Negative Leu/uL (Negative); Nitrite Negative (Negative); Protein, Urine (Dipstick) Negative (Neg-Trace); RBC/HPF 0-3 HPF (0-3); Specific Gravity, Urine 1.007 (1.002-1.036); Squamous Epithelial 0-3 HPF (0-3); Urobilinogen Normal mg/dL (Less than 2); WBC/HPF 0-3 HPF (0-3); pH, Urine 5.5 (5.0-9.0)
[2024-05-08 07:55] LABS: #Basophils 0.07 10x3/uL (0.0-0.2); %Basophils 1.4 % (0.0-1.0); %Eosinophils 4.1 % (0.0-10.0); %Lymphocytes 19.1 % (21.0-51.0); %Monocytes 8.5 % (0.0-10.0); %Neutrophils 65.7 % (42.0-75.0); Hematocrit 38.7 % (42.0-52.0); Hemoglobin 12.1 g/dL (14.0-18.0); Mean Corpuscular HGB CONC 31.3 g/dL (32.0-36.0); Mean Corpuscular Volume 105.4 fL (78.0-98.0); Mean Platelet Volume 10.5 fL (7.4-10.4); Platelet Count 153 10x3/uL (130-400); RBC Distribution Width 14.3 % (11.5-14.5); Red Blood Cell (RBC) Count 3.67 mill/uL (4.70-6.10)
[2024-05-08 08:02] LABS: Urine Culture Reflex No No
[2024-05-08] MEDS ORDERED: Furosemide 40 MG (4 mL) VIAL ONE (10:14)
[2024-05-08] MEDS ORDERED: Ondansetron PF 4 MG/2 ML Vial IVP PRN (10:19)
[2024-05-08] MEDS ORDERED: Ketorolac Tromethamine 30 MG (1 mL) VIAL ONE (12:02)
[2024-05-08] MEDS ORDERED: Acetaminophen 325 MG TAB ONE (12:02)
[2024-05-08] MEDS ORDERED: tiZANidine HCl 4 MG TAB ONE (12:03)
[2024-05-08] MEDS: Acetaminophen 325 MG TAB PO PRN (12:06)
[2024-05-08] MEDS: Ketorolac Tromethamine 30 MG (1 mL) VIAL IVP PRN (12:07)
[2024-05-08] MEDS: tiZANidine HCl 4 MG TAB PO SCH ×2 (12:07→20:19)
[2024-05-08 12:49] LABS: Troponin I 0.039 ng/mL (< 0.028)
[2024-05-08] MEDS: Ipratropium/Albuterol 3 ML NEB NEB SCH (14:35)
[2024-05-08 14:37] LABS: Troponin I 0.041 ng/mL (< 0.028)
[2024-05-08] MEDS: Furosemide 40 MG (4 mL) VIAL SLOW IVP SCH (15:19)
[2024-05-08] MEDS: Potassium Chloride 20 MEQ TAB PO SCH (16:30)
[2024-05-09 04:17] LABS: #Basophils Less than 0.03 10x3/uL (0.0-0.2); #Eosinophils Less than 0.03 10x3/uL (0.0-0.7); %Lymphocytes 5.8 % (21.0-51.0); %Monocytes 3.4 % (0.0-10.0); %Neutrophils 90.5 % (42.0-75.0); Hematocrit 34.4 % (42.0-52.0); Hemoglobin 11.2 g/dL (14.0-18.0); Mean Corpuscular HGB CONC 32.6 g/dL (32.0-36.0); Mean Corpuscular Hemoglobin 32.8 pg (27.0-31.0); Mean Corpuscular Volume 100.9 fL (78.0-98.0); Mean Platelet Volume 10.2 fL (7.4-10.4); Platelet Count 137 10x3/uL (130-400); RBC Distribution Width 13.7 % (11.5-14.5); Red Blood Cell (RBC) Count 3.41 mill/uL (4.70-6.10)
[2024-05-09 04:50] LABS: ALT (SGPT) 21 U/L (8-55); AST (SGOT) 39 U/L (5-34); Albumin 2.6 g/dL (3.4-4.8); Alkaline Phosphatase 75 U/L (40-110); Anion Gap 12 mmol/L (10-20); BUN (Urea Nitrogen) 25 mg/dL (8.4-25.7); Bilirubin, Total 1.2 mg/dL (0.2-1.2); Calc. Creatinine Clearance 119 mL/min (70-130); Calcium 8.7 mg/dL (7.8-10.44); Carbon Dioxide 29 mmol/L (23-31); Chloride 100 mmol/L (98-107); Estimated GFR 69; Globulin 3.1 g/dL (2.4-3.5); Glucose 133 mg/dL (83-110); Magnesium 2.3 mg/dL (1.6-2.6); Potassium 4.7 mmol/L (3.5-5.1); Protein, Total 5.7 g/dL (5.8-8.1); Sodium 136 mmol/L (136-145)
[2024-05-09] MEDS: Enoxaparin 40 MG (0.4 mL) SYRINGE SC SCH (09:20)
[2024-05-09] MEDS: Pantoprazole DR 40 MG TAB PO SCH (09:22)
[2024-05-09] MEDS: predniSONE 20 MG TAB PO SCH (09:22)
[2024-05-09] MEDS: LevoFLOXacin 750 mg/D5W 750 MG in Premix 1 BAG IVPB SCH (09:23)
[2024-05-09] MEDS: Senokot S 8.6-50 MG TAB PO SCH (11:32)
[2024-05-09] MEDS: Polyethylene Glycol 3350 17 GM Packet PO SCH (11:32)
[2024-05-09] MEDS: FLU (Fluad Triv) TS24-25 (65UP)/MF59C/PF 45 MCG/0.5 ML Syringe IM ONE (13:24)
[2024-05-09] MEDS: Empagliflozin 10 MG TAB PO SCH (16:20)
[2024-05-09] MEDS: Diclofenac 1% 50 GM TOPICAL GEL TP SCH ×2 (18:49→20:34)
[2024-05-09] MEDS: traZODone HCl 50 MG TAB PO SCH (20:32)
[2024-05-10 05:03] LABS: ALT (SGPT) 21 U/L (8-55); AST (SGOT) 42 U/L (5-34); Albumin 2.6 g/dL (3.4-4.8); Alkaline Phosphatase 76 U/L (40-110); Anion Gap 11 mmol/L (10-20); BUN (Urea Nitrogen) 32 mg/dL (8.4-25.7); Bilirubin, Total 0.8 mg/dL (0.2-1.2); Calc. Creatinine Clearance 113 mL/min (70-130); Calcium 8.7 mg/dL (7.8-10.44); Carbon Dioxide 30 mmol/L (23-31); Chloride 100 mmol/L (98-107); Estimated GFR 65; Globulin 2.8 g/dL (2.4-3.5); Glucose 127 mg/dL (83-110); Potassium 4.7 mmol/L (3.5-5.1); Protein, Total 5.4 g/dL (5.8-8.1); Sodium 136 mmol/L (136-145)
[2024-05-10 05:09] LABS: #Basophils Less than 0.03 10x3/uL (0.0-0.2); #Eosinophils Less than 0.03 10x3/uL (0.0-0.7); %Lymphocytes 5.3 % (21.0-51.0); %Monocytes 5.5 % (0.0-10.0); %Neutrophils 88.8 % (42.0-75.0); Hematocrit 32.8 % (42.0-52.0); Hemoglobin 10.6 g/dL (14.0-18.0); Mean Corpuscular HGB CONC 32.3 g/dL (32.0-36.0); Mean Corpuscular Hemoglobin 32.4 pg (27.0-31.0); Mean Corpuscular Volume 100.3 fL (78.0-98.0); Mean Platelet Volume 10.5 fL (7.4-10.4); Platelet Count 137 10x3/uL (130-400); RBC Distribution Width 13.8 % (11.5-14.5); Red Blood Cell (RBC) Count 3.27 mill/uL (4.70-6.10)
[2024-05-10] MEDS: Senokot S 8.6-50 MG TAB PO SCH (09:26)
[2024-05-10] MEDS: Polyethylene Glycol 3350 17 GM Packet PO SCH (09:26)
[2024-05-10] MEDS: Furosemide 40 MG TAB PO SCH (09:27)
[2024-05-10] MEDS: Empagliflozin 10 MG TAB PO SCH (09:28)
[2024-05-10] MEDS: Sodium Chloride 0.9% 1,000 ML IV SCH (09:36)
[2024-05-10] MEDS: HYDROcodone/Acetaminophen 10/325 mg Tablet PO SCH (14:58)
[2024-05-11 06:05] LABS: #Basophils Less than 0.03 10x3/uL (0.0-0.2); #Eosinophils Less than 0.03 10x3/uL (0.0-0.7); %Eosinophils 0.1 % (0.0-10.0); %Lymphocytes 7.2 % (21.0-51.0); %Monocytes 8.2 % (0.0-10.0); %Neutrophils 84.1 % (42.0-75.0); Hematocrit 32.3 % (42.0-52.0); Hemoglobin 10.4 g/dL (14.0-18.0); Mean Corpuscular HGB CONC 32.2 g/dL (32.0-36.0); Mean Corpuscular Hemoglobin 32.2 pg (27.0-31.0); Mean Platelet Volume 10.7 fL (7.4-10.4); Platelet Count 120 10x3/uL (130-400); Red Blood Cell (RBC) Count 3.23 mill/uL (4.70-6.10)
[2024-05-11 06:11] LABS: ALT (SGPT) 21 U/L (8-55); AST (SGOT) 42 U/L (5-34); Albumin 2.5 g/dL (3.4-4.8); Alkaline Phosphatase 72 U/L (40-110); Anion Gap 9 mmol/L (10-20); BUN (Urea Nitrogen) 34 mg/dL (8.4-25.7); Bilirubin, Total 0.8 mg/dL (0.2-1.2); Calc. Creatinine Clearance 115 mL/min (70-130); Calcium 8.5 mg/dL (7.8-10.44); Carbon Dioxide 30 mmol/L (23-31); Chloride 101 mmol/L (98-107); Estimated GFR 66; Globulin 2.8 g/dL (2.4-3.5); Glucose 113 mg/dL (83-110); Potassium 5.3 mmol/L (3.5-5.1); Protein, Total 5.3 g/dL (5.8-8.1); Sodium 135 mmol/L (136-145)
[2024-05-11] MEDS: HYDROcodone/Acetaminophen 10/325 mg Tablet PO PRN (09:26)
[2024-05-11] MEDS: Albumin 25% 25 GM (100 mL) BOT IVPB SCH (13:09)
[2024-05-12 04:41] LABS: #Basophils Less than 0.03 10x3/uL (0.0-0.2); #Eosinophils Less than 0.03 10x3/uL (0.0-0.7); %Basophils 0.2 % (0.0-1.0); %Lymphocytes 6.6 % (21.0-51.0); %Monocytes 7.9 % (0.0-10.0); %Neutrophils 84.8 % (42.0-75.0); Hematocrit 32.5 % (42.0-52.0); Hemoglobin 10.1 g/dL (14.0-18.0); Mean Corpuscular HGB CONC 31.1 g/dL (32.0-36.0); Mean Corpuscular Hemoglobin 32.2 pg (27.0-31.0); Mean Corpuscular Volume 103.5 fL (78.0-98.0); Mean Platelet Volume 10.7 fL (7.4-10.4); Platelet Count 119 10x3/uL (130-400); RBC Distribution Width 14.1 % (11.5-14.5); Red Blood Cell (RBC) Count 3.14 mill/uL (4.70-6.10)
[2024-05-12 04:51] LABS: ALT (SGPT) 21 U/L (8-55); AST (SGOT) 33 U/L (5-34); Albumin 2.9 g/dL (3.4-4.8); Alkaline Phosphatase 77 U/L (40-110); Anion Gap 9 mmol/L (10-20); BUN (Urea Nitrogen) 33 mg/dL (8.4-25.7); Calc. Creatinine Clearance 113 mL/min (70-130); Calcium 8.8 mg/dL (7.8-10.44); Carbon Dioxide 33 mmol/L (23-31); Chloride 100 mmol/L (98-107); Estimated GFR 64; Globulin 2.5 g/dL (2.4-3.5); Glucose 119 mg/dL (83-110); Potassium 5.3 mmol/L (3.5-5.1); Protein, Total 5.4 g/dL (5.8-8.1); Sodium 137 mmol/L (136-145)
[2024-05-12] MEDS ORDERED: Furosemide 20 MG TAB PO SCH (09:15)
[2024-05-12] MEDS: Furosemide 40 MG TAB PO SCH (09:34)
[2024-05-13 04:47] LABS: ALT (SGPT) 22 U/L (8-55); AST (SGOT) 31 U/L (5-34); Albumin 2.8 g/dL (3.4-4.8); Alkaline Phosphatase 77 U/L (40-110); Anion Gap 13 mmol/L (10-20); BUN (Urea Nitrogen) 34 mg/dL (8.4-25.7); Calc. Creatinine Clearance 107 mL/min (70-130); Calcium 8.6 mg/dL (7.8-10.44); Carbon Dioxide 30 mmol/L (23-31); Chloride 98 mmol/L (98-107); Estimated GFR 60; Globulin 2.5 g/dL (2.4-3.5); Glucose 108 mg/dL (83-110); Potassium 4.9 mmol/L (3.5-5.1); Protein, Total 5.3 g/dL (5.8-8.1); Sodium 136 mmol/L (136-145)
[2024-05-13 04:54] LABS: Hematocrit 31.9 % (42.0-52.0); Hemoglobin 10.5 g/dL (14.0-18.0); Mean Corpuscular HGB CONC 32.9 g/dL (32.0-36.0); Mean Corpuscular Hemoglobin 33.3 pg (27.0-31.0); Mean Corpuscular Volume 101.3 fL (78.0-98.0); Mean Platelet Volume 10.7 fL (7.4-10.4); Platelet Count 106 10x3/uL (130-400); RBC Distribution Width 13.9 % (11.5-14.5); Red Blood Cell (RBC) Count 3.15 mill/uL (4.70-6.10)
[2024-05-13 04:55] LABS: #Basophils Less than 0.03 10x3/uL (0.0-0.2); #Eosinophils Less than 0.03 10x3/uL (0.0-0.7); %Basophils 0.2 % (0.0-1.0); %Lymphocytes 6.9 % (21.0-51.0); %Monocytes 7.1 % (0.0-10.0)
[2024-05-13 05:39] VITALS: BMI 42.3
[2024-05-13 11:59] VITALS: TEMP 98.7
[2024-05-13 15:03] VITALS: BP 101/54
== END 2024-05-13 14:58 | disposition home or self-care (01) | DRG 280 ==
LOC: ERS 06:30 → ERHOLD 10:10 → OBS 13:48 → OBSVTOIN 05-09 15:52
PROVIDERS: ADMIT Hospitalist; ATTEND Internal Medicine
DX: I11.0 Hypertensive heart disease with heart failure (principal); I50.33 Acute on chronic diastolic (congestive) heart failure; I21.A1 Myocardial infarction type 2; J18.9 Pneumonia, unspecified organism; J96.21 Acute and chronic respiratory failure with hypoxia; J44.1 Chronic obstructive pulmonary disease with (acute) exacerbation; Z68.41 Body mass index [BMI] 40.0-44.9, adult; J44.0 Chronic obstructive pulmonary disease with (acute) lower respiratory infection; K74.60 Unspecified cirrhosis of liver; F17.210 Nicotine dependence, cigarettes, uncomplicated; E66.01 Morbid (severe) obesity due to excess calories; D63.8 Anemia in other chronic diseases classified elsewhere; K59.00 Constipation, unspecified; R53.1 Weakness; Z79.899 Other long term (current) drug therapy; Z98.890 Other specified postprocedural states
CPT/HCPCS: 36415; 36416; 71045; 74018; 80053; 81001; 83735; 83880; 84443; 84484; 85025; 87040; 87428; 93005; 93306; 94640; 94760; 96365; 96366; 96367; 96372; 96375; 96376; G0378; J1650; J1885; J1940; J1956; J3475; J7512; J7611; J7620; P9047